=== PATIENT | male | born 1975 | race Caucasian/White ===

== ENCOUNTER → 2016-04-29 | Outpatient (REF) | payer BC ==
[~2016-04-29] MED LIST: ADVI200C5 PO; DOXY100T16 PO; TYLE325T5 PO; no home meds
== END ==
LOC: M SFHCPLAZ 08:52
DX: I10 Essential (primary) hypertension (principal)

== ENCOUNTER 2018-09-21 08:07 | Emergency (ER) | payer BC ==
[~2018-09-21] VITALS: Ht 177.8 cm; Wt 72.7 kg
[2018-09-21] MEDS ORDERED: diphenhydrAMINE INJ 50MG/ML VIAL (J1200) IV STA (08:12)
[2018-09-21] MEDS ORDERED: LISI10TA4 PO (08:14)
[2018-09-21] MEDS ORDERED: DIPH25CA32 PO (08:14)
[2018-09-21] MEDS ORDERED: FAMOTIDINE INJ 20MG/2ML VIAL (S0028) IVP ONE (08:15)
[2018-09-21] MEDS ORDERED: methylPREDNISolone INJ 125 MG/2 ML VIAL (J2930) IV ONE (08:15)
[2018-09-21] MEDS ORDERED: ONDANSETRON 4MG/2ML VIAL (J2405) IV ONE (08:30)
[2018-09-21] MEDS ORDERED: ADACEL/BOOSTRIX VACCINE (DIPHTH/PERTUSS/ACELL/TETANUS)0.5ML SYR (90715) IM ONE (08:45)
[2018-09-21] MEDS ORDERED: EPIP0.3I2 IM (11:52)
[2018-09-21 12:21] VITALS: BP 126/73
== END 2018-09-21 12:15 | disposition home or self-care (01) ==
LOC: M ED 08:07
DX: T63.441A Toxic effect of venom of bees, accidental (unintentional), initial encounter (principal); Y92.099 Unspecified place in other non-institutional residence as the place of occurrence of the external cause; Y93.9 Activity, unspecified; I10 Essential (primary) hypertension; Z79.899 Other long term (current) drug therapy; Z91.030 Bee allergy status
CPT/HCPCS: 90715; 96372; 96374; 96375; 99285; J1200; J2405; J2930

== ENCOUNTER → 2022-07-07 | Outpatient (REF) | payer BC ==
[~2022-07-07] MED LIST changes: +DIPH-435 PO; -DOXY100T16 PO; +DOXY100T27 PO; +EPIP0.3I2 IM; +LISI10TA22 PO
== END ==
LOC: M SFHCPLAZ 08:30
PROVIDERS: ATTEND Internal Medicine Hematology
DX: Z00.00 Encounter for general adult medical examination without abnormal findings (principal)

== ENCOUNTER → 2022-08-01 | Outpatient (REF) | payer BC | LOC: M LAB REF 17:50 | PROVIDERS: ATTEND Physician Assistant Medical | DX: B34.9 Viral infection, unspecified (principal) ==

== ENCOUNTER → 2024-11-06 | Outpatient (CLI) | payer BC | LOC: M WUC 13:26 | PROVIDERS: ATTEND Physician Assistant | DX: M54.50 Low back pain, unspecified (principal); M25.511 Pain in right shoulder ==